=== PATIENT | male | born 1955 | race Caucasian/White ===

== ENCOUNTER → 2016-12-06 | Outpatient (CLI) | payer OTHER, BC ==
[~2016-12-06] VITALS: Ht 175.3 cm; Wt 90.7 kg
[~2016-12-06] MED LIST: ALTACE5 M1 PO; ARICEPT 5 MG TAB5 MG PO; ASPIRIN EC650 MG PO; BACLOFEN 10MG T10 MG PO; CARBAMAZEPINE200 M3 PO; CARDIO TEA; CLOBETASOL EMOL15 GM TP; CLONAZEPAM 1 MG1 M1 NG; CO Q-10100 MG PO; CRESTOR10 MG PO; CRESTOR20 MG PO; DULERA 200 MCG/13 GM; FISH OIL500 M1 PO; FLONASE 0.05%50 MCG NASAL; FLUOXETINE HCL40 MG PO; GLUCOSAMINE &1 EACH PO; LAMICTAL XR100 MG PO; MIRAPEX0.5 MG PO; NEURONTIN 300300 M1 PO; NIASPAN 500 MG500 M1 PO; NITROSTAT0.4 MG SL; PLAVIX 75 MG TA75 M1 PO; PROTONIX40 M1 PO; RED YEAST RICE600 MG PO; SAW PALMETTO 1160 MG PO; SEROQUEL400 MG PO; TOPROL XL25 MG PO; VITAMIN C100 M1 PO; VITAMIN D400 UNI1 PO; ZETIA10 MG PO
--- NOTE | ~2016-12-06 | HPC ---
[facility] [place] [address] PAIN MANAGEMENT CONSULTATION Name: ANTON LANDAN Room #: REG [facility] Osvaldo#: [id number] Admission: 12/06/16 Attend Phys: Rafa Lopez DO Discharge: Date of : 53 Report #: [id number] THIS REPORT FOR: //name// CC: Americo Lopez DATE OF SERVICE: 12/06/2016 HISTORY OF PRESENT ILLNESS: The patient is a 61-year-old gentleman seen in consultation at the request of Dr. Americo Cook for evaluation of primarily right groin pain radiating into the testicle that he states is disabling. He notes he has numbness in his legs walking greater than 40-50 yards. States he can stand for greater than an hour. He also notes an incidental thoracic spine pain. He tells me he had a [employer] spinal cord stimulator implanted in November 2013. Still stimulation is low back, groin and right leg. He tells me this stimulator is scheduled to be replaced with a [employer] paddle lead in December 2014 with hope of garnering more thoracic coverage. He tells me he has had "injections" with little efficacy, he had a "pain management place" sometime in 11/2013. There are no records available for this. States he did have a right total shoulder arthroplasty by his orthopedist who has injected his knees, but again he has a little difficult to pin down on details. Uses a cane in his left hand. He describes pain that is intermittent, rhythmic, periodic, shooting, cramping, aching, sharp. Rates pain anywhere from a 0-10 on a 0-10 visual analog scale. He notes his pain is chronic. States that it began at age 13 and again at age 39 (?). Denies particular myelopathic symptoms. Does note ultimately that the worst pain is in the right groin radiating into the testicle and is exacerbated with standing. REVIEW OF SYSTEMS: Complete review of systems attached to chart and gone over with the patient, is , does not smoke, drink alcohol to excess. History of asthma for which he takes Dulera, has hypertension for which he takes metoprolol and ramipril. Coronary artery disease status post endovascular stents. He is on current blood thinner tenderness, but these are for CVA he had this past September. Apparently, this was manifested as some slurred speech though this has largely resolved. He tells me he was actually diagnosed for some prior questionable CVA type symptoms. For this, he had been placed on gabapentin. He has significant psychiatric comorbidities including OCD and depression. Currently, takes clonazepam, fluoxetine, Lamictal and carbamazepine as a mood stabilizer. Adjuvant use of gabapentin may include mood stabilization, but "silent migraines" as well. He has been taking baclofen for 3 years for some muscle spasm. Diagnosed with hypotestosteronism for which he takes AndroGel. Dyslipidemia for which he takes Zetia and rosuvastatin. Again, Plavix for the September diagnosis of CVA, again no sequelae noted. The patient has an extensive surgical list, which we reviewed. It is attached [address] [address] PAIN MANAGEMENT CONSULTATION Name: ANTON LANDA Room #: REG [facility] Osvaldo#: [id number] Admission: 12/06/16 Attend Phys: Rafa Lopez DO Discharge: Date of : 53 Report #: [id number] to the chart. Includes ORIF left ankle, right ACL repair in 1989, deviated septum and tonsillectomy in 1994. Two endovascular stents in 2004. ORIF in left hand in 2004. Carpal tunnel surgery 2008 (right). Lumbar discectomy in 2010 (L3-L4?). Umbilical hernia surgery in January of 2011 and neurostimulator implant 11/2013. Cataract for surgery and right total shoulder arthroplasty 07/2016. Pain impact score is 45 out of 70. PHYSICAL EXAMINATION: VITAL SIGNS: Reveals a 5 feet 9 inches, 200 pounds gentleman, BMI is 29.5 kilograms per meter squared. Blood pressure is 114/64, pulse 63, respirations 16, room air oxygen saturation 97%. NEUROLOGIC: Cranial nerves 2-12 are grossly intact. Pupils equal, reactive to light and accommodation. Extraocular muscles are intact. Does have some nystagmus with lateral gaze deviation, both left and right. NECK: Thyroid is unremarkable. MUSCULOSKELETAL: Cervical range of motion is generally full, right shoulder range of motion and strength is diminished compatible with total shoulder arthroplasty this past July. HEART: Regular rhythmical without murmur. LUNGS: Clear to auscultation. ABDOMEN: Unremarkable. EXTREMITIES: Rises from the chair using armrest, has a little ataxia with gait. He can walk on his toes and heels, though he has poor balance. Lumbar flexion is good 90 degrees. Lower extremity strength objectively is 4/5 to all muscles tested. Patellar and Achilles reflexes are diminished, but symmetric. Straight leg raise is negative. He is tender over the right ASIS. Does radiate pain into the right testicle. Passive rotation of the hips is unremarkable. Aleksandra test is negative. Skin integument is intact. There are no diagnostic studies available for evaluation at this time. 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 History of lumbar radiculopathy status post decompressive laminectomy with ongoing lumbar radicular pain requiring spinal cord stimulator. Significant psychiatric comorbidities including OCD and depression with multiple central acting agents involved. RECOMMENDATION: Discussion with the patient today about therapeutic option. We elected to move forward with right ilioinguinal nerve block today. I have patient to follow up with Dr. Americo Cook for spinal cord stimulator revision. I will be happy to see the patient after this for consideration for further interventional therapies. Presently, he is anticoagulated. We talked about possible bruising from the right ilioinguinal nerve block. [address] [address] PAIN MANAGEMENT CONSULTATION Name: ANTON LANDA Room #: REG [facility] Grisel.#: [id number] Admission: 12/06/16 Attend Phys: Rafa Lopez DO Discharge: Date of : 53 Report #: [id number] ASSESSMENT: Neuropathic pain, right ilioinguinal neuralgia. PROCEDURE: After informed consent was obtained, the patient placed in supine position. Skin overlying the right anterior superior iliac spine was cleansed with alcohol, using a 25-gauge needle at insertion point approximately 2 cm medial and inferior to the ASIS was identified, needle was advanced in an inferior medial trajectory in a fan hubbard fashion, 40 mg triamcinolone plus 8 mL of 50:50 mix of 0.5% preservative-free bupivacaine plus 1.5% preservative-free Xylocaine with 1:200,000 epinephrine was injected into and around the area. The patient was told to use ice to the area today. Follow up simply as needed. Discharged in good and stable condition. Thank you for allowing me to participate in the patient's care. Again, I will see him after his spinal cord stimulator is revised for further therapeutic options. By: [id number] Rafa Lopez DO /nt
[2016-12-06 10:32] VITALS: BP 114/64
== END ==
LOC: PAIN 06:50
DX: G58.8 Other specified mononeuropathies (principal); M96.1 Postlaminectomy syndrome, not elsewhere classified; J45.909 Unspecified asthma, uncomplicated; I10 Essential (primary) hypertension; I25.10 Atherosclerotic heart disease of native coronary artery without angina pectoris; F32.9 Major depressive disorder, single episode, unspecified; F42.9 Obsessive-compulsive disorder, unspecified; E78.5 Hyperlipidemia, unspecified; Z86.73 Personal history of transient ischemic attack (TIA), and cerebral infarction without residual deficits